=== PATIENT | male | born 1960 | race Caucasian/White ===

== ENCOUNTER → 2017-09-08 | Outpatient (CLI) | payer BC ==
[2017-09-08 09:21] LABS: BUN/CREATININE RATIO 21.1 (6.0-26.0); CALCIUM 8.8 mg/dL (8.4-10.2); POTASSIUM 4.5 mmol/L (3.6-5.0)
== END ==
LOC: LAB 07:21
PROVIDERS: Family Medicine
DX: E13.9 Other specified diabetes mellitus without complications (principal)

== ENCOUNTER 2017-12-31 12:54 | Emergency (ER) | payer BC ==
[~2017-12-31] VITALS: Ht 182.9 cm; Wt 120.5 kg
[2017-12-31 13:23] LABS: EOS # 0.1 (0.04-0.40); EOS % 0.9 % (0.0-4.0); HEMATOCRIT 44.2 % (42.0-52.0); HEMOGLOBIN 14.5 g/dL (13.5-18.0); LYMPH# 1.9 (1.50-4.00); MEAN CELL VOLUME 87 fl (78-100); MEAN CORPUSCULAR HEMOGLOBIN 29 pg (27-31); MEAN CORPUSCULAR HGB CONC 33 g/dL (33-37); MEAN PLATELET VOLUME 11.6 fl (7.4-10.4); MONO # 1.1 (0.20-0.80); PLATELET COUNT 229 K/mm3 (130-400); RED BLOOD COUNT 5.07 M/mm3 (4.20-5.60); WHITE BLOOD COUNT 14.1 K/mm3 (4.8-10.8)
[2017-12-31 13:25] LABS: NEU # 10.9 (1.40-6.50)
[2017-12-31] MEDS ORDERED: DIABETA 5MG5 MG/TAB PO (13:35)
[2017-12-31] MEDS ORDERED: GEMFIBROZIL600 M1 PO (13:35)
[2017-12-31] MEDS ORDERED: LOSARTAN POTASS50 M1 PO (13:36)
[2017-12-31] MEDS ORDERED: PRAVASTATIN SOD80 MG PO (13:36)
[2017-12-31] MEDS ORDERED: GLUCOPHAGE PO (13:36)
[2017-12-31 13:39] LABS: ALBUMIN 3.9 g/dL (3.5-5.0); BUN/CREATININE RATIO 14.5 (6.0-26.0); CALCIUM 8.9 mg/dL (8.4-10.2); POTASSIUM 4.1 mmol/L (3.6-5.0); TOTAL BILIRUBIN 0.6 mg/dL (0.2-1.3); TOTAL PROTEIN 7.3 g/dL (6.3-8.2)
[2017-12-31 15:27] VITALS: BP 106/54
== END 2017-12-31 15:15 | disposition short-term general hospital (02) ==
LOC: ED 12:54
PROVIDERS: Physician Assistant
DX: K91.71 Accidental puncture and laceration of a digestive system organ or structure during a digestive system procedure (principal); E11.9 Type 2 diabetes mellitus without complications; I10 Essential (primary) hypertension; E78.5 Hyperlipidemia, unspecified; E66.9 Obesity, unspecified; Z68.36 Body mass index [BMI] 36.0-36.9, adult; R00.1 Bradycardia, unspecified; I49.3 Ventricular premature depolarization; Z79.84 Long term (current) use of oral hypoglycemic drugs; Z98.890 Other specified postprocedural states
CPT/HCPCS: J1885; J2405; J2543; J3010; J7030; Q9967

== ENCOUNTER → 2017-12-31 | Day surgery (SDC) | payer BC ==
[~2017-12-31] MED LIST: DIABETA 5MG5 MG/TAB PO; GEMFIBROZIL600 M1 PO; GLUCOPHAGE PO; LOSARTAN POTASS50 M1 PO; PRAVASTATIN SOD80 MG PO
== END ==
LOC: MSO 07:06
DX: Z12.11 Encounter for screening for malignant neoplasm of colon (principal); Z80.0 Family history of malignant neoplasm of digestive organs; R00.1 Bradycardia, unspecified; I49.3 Ventricular premature depolarization; I10 Essential (primary) hypertension; E11.9 Type 2 diabetes mellitus without complications; Z79.84 Long term (current) use of oral hypoglycemic drugs
CPT/HCPCS: 00812; J0461; J2704; J3010; J7030